=== PATIENT | male | born 1935 | race Caucasian/White ===

== ENCOUNTER 2023-07-15 13:36 | Emergency (ER) | payer MEDICARE, OTHER ==
[~2023-07-15] VITALS: Ht 182.9 cm; Wt 64.0 kg
[2023-07-15 13:39] VITALS: O2SAT 94
[2023-07-15 13:48] VITALS: BP 72/51; PULSE 92; RESP 14; TEMP 101
[2023-07-15] MEDS ORDERED: SODIUM CHLORIDE 0.9% 1000ML BAG (SEPSIS BOLUS) IV ONE (14:00)
[2023-07-15] MEDS ORDERED: PIPERACILLIN/TAZ 3.375G PREMIX 50 ML IV ONE (14:00)
[2023-07-15] MEDS ORDERED: ACETAMINOPHEN 325MG SUPP PR ONE (14:00)
[2023-07-15] MEDS ORDERED: ACETAMINOPHEN 650MG SUPP PR SCH (14:00)
== END 2023-07-15 15:41 ==
LOC: ER 13:43
DX: R41.82 Altered mental status, unspecified (principal); I50.9 Heart failure, unspecified; I95.9 Hypotension, unspecified; J44.9 Chronic obstructive pulmonary disease, unspecified; I48.91 Unspecified atrial fibrillation
CPT/HCPCS: 99285; 71045; J7030